=== PATIENT | male | born 1945 | race Caucasian/White ===

== ENCOUNTER → 2017-04-09 | Outpatient (CLI) | payer OTHER, MEDICAID | END | disposition home or self-care (01) | LOC: CT 12:48 | PROC: BP29ZZZ Computerized Tomography (CT Scan) of Left Shoulder (ICD-10-PCS; principal; 2017-04-09) | DX: R22.32 Localized swelling, mass and lump, left upper limb (principal) ==

== ENCOUNTER 2017-05-23 05:42 | Observation (INO) | payer OTHER, MEDICAID ==
[~2017-05-23] VITALS: Ht 154.9 cm; Wt 69.6 kg
[2017-05-23 06:03] VITALS: BP 138/75
[2017-05-23 11:50] VITALS: BP 147/66
[2017-05-23] MEDS ORDERED: ARICEPT10 MG PO (13:57)
[2017-05-23] MEDS ORDERED: NATURE'S BLEND F1 MG PO (13:57)
[2017-05-23] MEDS ORDERED: GOOD SENSE OMEP20 MG PO (14:06)
[2017-05-23 14:10] LABS: T3 TOTAL 1.06 ng/mL
[2017-05-23] MEDS ORDERED: SIMVASTATIN10 M1 PO (14:12)
[2017-05-23] MEDS ORDERED: MASON NATURAL1000 IU PO (14:13)
[2017-05-23] MEDS ORDERED: TAMSULOSIN HYD0.4 M1 PO (14:13)
[2017-05-23 14:39] LABS: CHOLESTEROL/HDL RATIO 2.9; MAGNESIUM 1.9 mg/dL (1.8-2.4); PHOSPHOROUS 3.2 mg/dL (2.5-4.9)
[2017-05-23 14:47] LABS: FREE T4 1.35 ng/dL (0.76-1.46); FREE THYROXINE INDEX 3.3 ug/dL (1.4-4.5); T4(THYROXINE) 9.1 ug/dL (4.7-13.3)
[2017-05-23 15:36] LABS: BASOPHIL % 0.8 % (0-2); PLATELET COUNT 198 x10^3mcL (130-400)
[2017-05-23 15:37] LABS: ALBUMIN 3.4 g/dL (3.4-5.0); ALKALINE PHOSPHATASE 77 U/L (46-116); ALT/SGPT 12 U/L (16-63); AST/SGOT 19 U/L (15-37); BILIRUBIN TOTAL 0.4 mg/dL (0.20-1.00); CALCIUM 8.8 mg/dL (8.5-10.1); CARBON DIOXIDE 25.3 mmol/L (21-32); CHLORIDE SERUM 98 mmol/L (98-107); GLUCOSE SERUM 136 mg/dL (74-106); POTASSIUM SERUM 3.6 mmol/L (3.5-5.1); SODIUM SERUM 138 mmol/L (136-145); TOTAL PROTEIN, SERUM 6.9 g/dL (6.4-8.2)
[2017-05-23 15:40] LABS: CREATININE SERUM 5.2 mg/dL (0.7-1.3)
[2017-05-23 18:02] VITALS: BP 136/55
[2017-05-23 20:49] VITALS: BP 163/91
[2017-05-23 21:23] VITALS: BP 153/75
[2017-05-24 05:50] VITALS: BP 136/64
[2017-05-24 06:43] LABS: CALCIUM 8.7 mg/dL (8.5-10.1); CARBON DIOXIDE 24.7 mmol/L (21-32); CHLORIDE SERUM 96 mmol/L (98-107); GLUCOSE SERUM 124 mg/dL (74-106); POTASSIUM SERUM 3.9 mmol/L (3.5-5.1); SODIUM SERUM 132 mmol/L (136-145)
[2017-05-24 06:45] LABS: BASOPHIL % 0.3 % (0-2); PLATELET COUNT 175 x10^3mcL (130-400)
[2017-05-24 06:47] LABS: CREATININE SERUM 6.4 mg/dL (0.7-1.3); RED CELL DISTRIBUTION WIDTH 17.9 % (11.5-14.5)
[2017-05-24 08:49] VITALS: BP 134/63
[2017-05-24] MEDS ORDERED: APAP/HYDROCODON1 T13 PO (09:58)
[2017-05-24 10:11] VITALS: BP 134/63
[2017-05-24] MEDS ORDERED: COL100UDC PO (10:22)
== END 2017-05-24 11:15 | DRG 500 ==
LOC: DS 05:42 → OR 07:30 → DS 07:30 → DU 11:23
PROVIDERS: Family Medicine; Neuromusculoskeletal Medicine, Sports Medicine
PROC: 0KC Muscles, Extirpation (ICD-10-PCS; principal; 2017-05-23 08:00)
DX: M25.812 Other specified joint disorders, left shoulder (principal); N18.6 End stage renal disease; I12.0 Hypertensive chronic kidney disease with stage 5 chronic kidney disease or end stage renal disease; S42.92XS Fracture of left shoulder girdle, part unspecified, sequela; E11.22 Type 2 diabetes mellitus with diabetic chronic kidney disease; K21.9 Gastro-esophageal reflux disease without esophagitis; N40.0 Benign prostatic hyperplasia without lower urinary tract symptoms; G30.9 Alzheimer's disease, unspecified; F02.80 Dementia in other diseases classified elsewhere, unspecified severity, without behavioral disturbance, psychotic disturbance, mood disturbance, and anxiety; E78.5 Hyperlipidemia, unspecified; Z99.2 Dependence on renal dialysis; Z79.84 Long term (current) use of oral hypoglycemic drugs; X58.XXXS Exposure to other specified factors, sequela; Y83.4 Other reconstructive surgery as the cause of abnormal reaction of the patient, or of later complication, without mention of misadventure at the time of the procedure
CPT/HCPCS: 84439; G0378; J0690; J1170; J2250; J2405; J3010; J3490; J7030